=== PATIENT | male | born 1995 | race Caucasian/White ===

== ENCOUNTER 2017-08-05 08:57 | Emergency (ER) | payer OTHER ==
[2017-08-05] MEDS ORDERED: Diazepam 5 MG TAB ONE ×2 (09:41→09:46)
[2017-08-05] MEDS ORDERED: Naproxen 500 MG TAB ONE (09:41)
== END 2017-08-05 10:25 | disposition home or self-care (01) ==
LOC: ERS 08:57
DX: M54.5 Low back pain (principal); F17.220 Nicotine dependence, chewing tobacco, uncomplicated
CPT/HCPCS: 99283